=== PATIENT | female | born 1975 | race Caucasian/White ===

== ENCOUNTER 2020-07-28 10:35 | Outpatient (CLI) | payer OTHER, SELFPAY ==
--- NOTE | ~2020-07-28 | XR_ITS ---
XR chest 2V DATE: 07/28/2020 11:27 INDICATION: Right chest pain for months. No injury. TECHNIQUE: PA and lateral views COMPARISON: None FINDINGS: Normal heart size. No hilar or mediastinal enlargement. No pulmonary infiltrate or consolidation, pleural effusion or pulmonary vascular congestion or pneumo thorax. Included skeletal structures are unremarkable. IMPRESSION: No active cardiopulmonary disease Reviewed, dictated and finalized at location A. ARCHITECT
== END 2020-07-28 10:36 | disposition home or self-care (01) ==
PROVIDERS: PCP Nurse Practitioner Obstetrics & Gynecology; Visit Provider Nurse Practitioner Obstetrics & Gynecology
DX: R07.81 Pleurodynia (principal)
CPT/HCPCS: 71046

== ENCOUNTER 2022-12-15 00:22 | Day surgery (SDC) | payer OTHER, SELFPAY ==
[2022-12-12 10:57] VITALS: BMI 26.4
--- NOTE | 2022-12-12 11:39 | PC.NURSE ---
Report to the Outpatient Waiting Room, entrance under the green pavilion located off [facility], at time _0730_ on date _12/15/22____. Planned Procedure Time: _0930__. Time changes happen often and if your time is changed the preop area will call you the afternoon before. - You and your visitor will be asked to self-screen and do not enter if you have any COVID symptoms. - A mask is optional within the hospital at this time. Patients may have clear liquids (water, carbonated beverages, clear teas, apple juice) until 3 hours prior to surgery with a maximum of 20 ounces. - No food from midnight until time of surgery - Take the following medications with a SIP of water the morning of surgery: ___VALACYCLOVIR, INHALER IF NEEDED DO NOT STOP ANY OF YOUR OTHER PRESCRIPTION MEDICATIONS PRIOR TO SURGERY ?EXCEPT THE FOLLOWING Medications to discontinue per physician N/A Date to take last dose____N/A Please no make-up, nail moroccan, hairspray, perfume, deodorant, or body powder the day of surgery. No jewelry (including any body piercings) or valuables the day of surgery, leave them at home. Please take a shower or bath the night before, or the morning of, surgery with an antibacterial soap. Wear comfortable, loose fitting clothing. Children are encouraged to wear pajamas. - Jewelry must be removed prior to entering the operating room. Rings and piercings that are not removed may be cut off. - The hospital will not accept responsibility for valuables. - Please leave all valuables, including medications, at home the day of surgery. If you are going home after surgery, a licensed school bus driver/custodian must drive you home. - NO public transportation without another adult if you receive anesthesia. - We recommend that an adult stay with you for 24 hours following discharge. - We also recommend that you do not drive, make important decision, drink alcoholic beverages, or take any drugs that were not prescribed by your health care provider for at least 24 hours after your discharge time. Follow any additional instructions given to you from your surgeon. If you or anyone in your household have experienced Covid symptoms in the past week, please notify your surgeon or the nurse liaison at the phone number below for possible testing. Telephone instructions given to ___TISHA and asked if any additional questions and then verbalized understanding. Patient advised to call surgeon office or pre surgery nurse liaison [phone] if any additional questions.
[2022-12-15] MEDS: ACETAMINOPHEN 500 MG TABLET 1000 MG PO (09:00)
[2022-12-15] MEDS: LACTATED RINGERS 1,000 ML 30 ML IV CONT (09:00)
[2022-12-15] MEDS: KETOROLAC 15 MG/ML VIAL (*BKC) IV PUSH (09:00)
[2022-12-15 09:19] VITALS: BP 135/82; PULSE 62; RESP 14; TEMP 36.6; O2SAT 99
--- NOTE | 2022-12-15 09:19 | WPDANESEPPF ---
Anes - Initial Pre Proc Eval Procedure: Operation Date: 12/15/22 09:30 Proposed Procedures p Excision Perianal Mass - Jose Mcgrath MD Date/Time: 12/15/22 09:19 Surgeon: Jose Mcgrath MD Pre Op Diagnosis: Perianal Mass Patient Data Age: 47 Gender: F Height: 1.63 m Weight: 70 kg Allergies Allergy/AdvReac Type Severity Reaction Status Date / Time codeine AdvReac Intermediate syncope Verified 12/12/22 11:41 Home Medications Medication Instructions Recorded Confirmed Type albuterol sulfate 90 mcg/actuation 1 puff inhalation Q4H PRN SOB 11/28/22 12/12/22 History aerosol inhaler (Proventil HFA) omega 3-dwx-vzd-fish oil 100 1 cap PO DAILY 11/28/22 12/12/22 History mg-160 mg-1,000 mg capsule (Fish Oil) valacyclovir 500 mg tablet 500 mg PO DAILY 11/28/22 12/12/22 History cholecalciferol (vitamin D3) 125 125 mcg PO DAILY 12/12/22 12/12/22 History mcg (5,000 unit) tablet Patient hx anesthesia problems: post op nausea/vomiting Family hx anesthesia problems: none Results Review: All pre-operative results and documents have been reviewed as part of the pre-operative evaluation. [facility] Past Medical History Medical History Asthma History of seizure Thyroid disorder Surgical History Surgical History [place] teeth extracted Family History Family History Other Diabetes mellitus Hypertension Social History Social History Smoking status: Never smoker Tobacco type: cigarettes Alcohol intake: never Substance use: never Substance use type: does not use Living arrangements: with family Occupation/Education: occupation Additional occupation/education comments: RN Spiritual care concerns: No Anes - Eval Final PreProcedure Day of Procedure 12/15/22 09:19 Patient weight: overweight Heart: regular rate and rhythm Lungs: clear to auscultation Airway: Mallampati scale class II Neurological: alert and oriented Last oral intake: >/= 8 hours ASA classification: II Emergent: no Anesthetic plan: proceed Anesthesia type and monitoring: general GIVS and standard monitoring Results Review: All pre-operative results and documents have been reviewed as part of the pre-operative evaluation. Informed Consent: The patient's anesthetic plan and its attendant risks and benefits were discussed with the patient/family/POA. Questions were solicited and answers provided to the satisfaction of the patient/family/POA.
[2022-12-15] MEDS: SCOPOLAMINE 1.5 MG PATCH TRANSDERM (09:28)
--- NOTE | 2022-12-15 09:52 | WPDHPUPDATE1 ---
History and Physical Update Update Date/Time: 12/15/22 09:52 History and Physical has been reviewed, including an updated exam of the patient. There are NO changes in the patient's condition. Risks, benefits, and alternatives have been discussed and questions answered. Patient agrees to proceed with procedure.
[2022-12-15] MEDS: ceFAZolin 2 GM/D5W 50 ML 2 GM/50 ML BAG IVPB (10:16)
[2022-12-15] MEDS: LIDO 1%/EPINEPHRINE 1:100,000 20 ML VIAL 30 ML INFILTRATE (10:24)
[2022-12-15 11:03] VITALS: BP 112/59; PULSE 79; RESP 16; O2SAT 100
[2022-12-15 11:30] VITALS: BP 118/68; PULSE 63; RESP 16; O2SAT 99
--- NOTE | 2022-12-15 11:34 | W.PM.PROC2 ---
Procedure Note - Detailed Date of Procedure 12/15/22 Pre-op Diagnosis Perianal Mass Post-op Diagnosis Other (1.) Perianal mass 2.) Superficial anal fistula) Procedure Performed Anorectal evaluation under anesthesia, excisional biopsy of perianal mass, anal fistulotomy. Surgeon Jose Mcgrath MD Anesthesia MAC and Local Indications Patient is a 47-year-old female who presented with a small perianal mass located at the 12 o'clock position posteriorly she is prone. No prior history of rectal abscesses. She presents now for excisional biopsy of the mass. Findings Patient had 2 large nonthrombosed internal hemorrhoids at the 6 o'clock position and 9 o'clock position she is prone. There is a 3mm nodular mass the perianal skin at the 12 o'clock position in the posterior midline with the patient prone. A small short superficial anal fistula is noted as well at the 12 o'clock position associated with the perianal mass. Description of Procedure After informed consent was obtained the patient was brought to the operating room she is placed prone and in the evangelista-knife position on the operating table with all the pressure points well padded. She was then given IV sedation by Anesthesia. The perianal region was then prepped and draped in usual sterile fashion. A time-out was then performed correctly identifying the patient as well as procedure to be performed. She was given Ancef for perioperative IV antibiotics. First started by gently dilating the anal sphincters with a lubricated anal speculum. He circumferentially evaluation the distal rectum revealed no masses. There were 2 very large nonthrombosed internal hemorrhoids that were not bleeding located at the 6 o'clock position and 9 o'clock position with the patient prone. At the 12 o'clock position the posterior midline pain of skin there is a 3mm nodular growth with what appeared to be a small opening in the center portion. I then proceeded to pass a very small lacrimal probe through this opening and there was an internal opening at the base of 1 of the anal crypts. This appeared to be consistent with a superficial and short anal fistula. I then proceeded to excise off with a #15 blade scalpel the small nodular mass. This was then sent to pathology for examination. An echo probe was then placed through the superficial anal fistula tract and then utilizing electrocautery on pure cut I had the tissue on top of the lacrimal probe. I then used electrocautery to fulgurate the granulation tissue within the fistula tract this is all done superficial to the internal sphincter muscle fibers. The tract only measured about 1.5cm in length. Hemostasis in the incision was then achieved utilizing the cautery. I then irrigated out the anal canal with sterile saline solution. I then proceeded to inject a mixture 1% lidocaine mixed with 0.5% Marcaine for a bilateral pudendal nerve block. The remaining portion of the local anesthetic mixture was then injected perianal skin for a perianal block. There is an cleaned and then fluffed 4x4 gauze, ABD pad and disposable underwear was used for final dressing. The patient tolerated the procedure well no complications. All sponges, needles, and instrument counts were correct at the end procedure. EBL was _5__cc. The patient was awakened and taken to recovery in stable and satisfactory condition. Implants None Estimated Blood Loss 5 Drains No Packing No Pathology Yes Complications No immediate complications Condition Stable Disposition PACU [facility] Billing Surgery - Charge Forward: Surgery Billing
[2022-12-15 12:00] VITALS: BP 119/70; PULSE 60; RESP 16
== END 2022-12-15 12:25 | disposition home or self-care (01) ==
PROVIDERS: Visit Provider Surgery
PROC: (CPT 46275; principal; 2022-12-15 09:30)
DX: K60.3 Anal fistula (principal); K64.8 Other hemorrhoids; K64.4 Residual hemorrhoidal skin tags; J45.909 Unspecified asthma, uncomplicated; Z79.51 Long term (current) use of inhaled steroids
CPT/HCPCS: 46275; 88304; A9270; J0690; J1885; J2250; J2704; J3010; J7120

== ENCOUNTER 2023-02-06 16:03 | Outpatient (CLI) | payer OTHER, SELFPAY ==
--- NOTE | ~2023-02-06 | XR_ITS ---
AP and lateral views of the right hip Clinical history: Pain Findings: No acute fracture or dislocation is seen. Osseous alignment is anatomic. The right hip join t and right SI joint are preserved. Soft tissues are unremarkable. Impression: No significant abnormality is seen. Reviewed, dictated and finalized at location . Impression: No significant abnormality is seen.
== END 2023-02-06 16:04 | disposition home or self-care (01) ==
PROVIDERS: PCP Nurse Practitioner Family; Visit Provider Nurse Practitioner Family
DX: M25.551 Pain in right hip (principal)
CPT/HCPCS: 73502